=== PATIENT | female | born 2000 | race Caucasian/White ===

== ENCOUNTER → 2022-04-28 | Outpatient (CLI) | payer OTHER ==
[~2022-04-28] MED LIST: LIDOCAINE 1% MDV 20ML VIAL As Ordered ONE
[2022-04-28 11:40] VITALS: BP 108/62
== END ==
LOC: M IRPRO 10:39
PROVIDERS: ATTEND Otolaryngology
DX: R22.1 Localized swelling, mass and lump, neck (principal)